=== PATIENT | female | born 1960 | race Caucasian/White ===

== ENCOUNTER → 2022-01-31 | Outpatient (CLI) | payer BC ==
[~2022-01-31] MED LIST: ASPIRIN EC81 MG PO; CYCLOBENZAPRINE10 MG PO; ENDOCET 7.5-321 EACH PO; PRAVASTATIN SOD80 MG PO; WELLBUTRIN XL300 M1 PO; ZOFRAN 4 MG TAB4 MG PO
[2022-01-31 09:17] LABS: HEMOGLOBIN 13.2 gm/dl (12.3-15.3); RED BLOOD COUNT 4.5 M/UL (4.00-5.10); WHITE BLOOD COUNT 5.5 K/UL (4.5-11.0)
[2022-01-31 09:36] LABS: BUN/CREATININE RATIO 23 (0-10)
== END ==
LOC: OPSV2 08:00
PROVIDERS: Orthopaedic Surgery
DX: Z01.818 Encounter for other preprocedural examination (principal); M75.101 Unspecified rotator cuff tear or rupture of right shoulder, not specified as traumatic
CPT/HCPCS: 71046; 80048; 83036; 85025; 93005

== ENCOUNTER → 2022-02-04 | Day surgery (SDC) | payer BC | END | disposition home or self-care (01) | LOC: OR 05:16 | DX: M75.111 Incomplete rotator cuff tear or rupture of right shoulder, not specified as traumatic (principal); M19.011 Primary osteoarthritis, right shoulder; E78.5 Hyperlipidemia, unspecified; E11.9 Type 2 diabetes mellitus without complications; F32.A Depression, unspecified; K21.9 Gastro-esophageal reflux disease without esophagitis; Z88.1 Allergy status to other antibiotic agents; Z79.899 Other long term (current) drug therapy | CPT/HCPCS: 82962; C1713; J0690; J1100; J1885; J2250; J2405; J2704; J2710; J2795 ==